=== PATIENT | male | born 1960 | race African-American/Black ===

== ENCOUNTER 2021-10-25 21:26 | Emergency (ER) | payer OTHER | END 2021-10-25 22:38 | LOC: ERS 21:26 | DX: S30.812A Abrasion of penis, initial encounter (principal); E11.9 Type 2 diabetes mellitus without complications; N48.1 Balanitis; E78.5 Hyperlipidemia, unspecified; I10 Essential (primary) hypertension | CPT/HCPCS: 99283 ==